=== PATIENT | female | born 1975 | race Two or more races ===

== ENCOUNTER 2016-08-05 23:42 | Observation (INO) | payer MEDICAID ==
--- NOTE | 2016-08-06 00:41 | C.PDOC ---
History Of Present Illness 40 year old patient brought to the ED by ambulance for being aggressive and under the influence in the streets. Patient admits to the ED nurse that she used "dip" today. History is limited due to patient not answering questions. Patient has been seen here previously for similar symptoms. She denies suicidal /homicidal ideations, or any physical complaints. Time Seen by Provider: 08/05/16 23:46 Chief Complaint (Nursing): Substance Abuse History Per: Patient History/Exam Limitations: other (under the influence ) Modifying Factor(s): Other Severity: Moderate Past Medical History Reviewed: Historical Data, Nursing Documentation, Vital Signs Vital Signs: Last Vital Signs Temp 98.2 F 08/06/16 02:29 Pulse 68 08/06/16 02:29 Resp 18 08/06/16 02:29 BP 162/101 H 08/06/16 02:29 Pulse Ox 99 08/06/16 02:29 - Medical History PMH: No Chronic Diseases Family History: States: Unknown Family Hx - Social History Hx Alcohol Use: Yes Hx Substance Use: Yes - Immunization History Hx Tetanus Toxoid Vaccination: No Hx Influenza Vaccination: No Hx Pneumococcal Vaccination: No Review Of Systems Except As Marked, All Systems Reviewed And Found Negative. Constitutional: Positive for: Other (under the influence) Cardiovascular: Negative for: Chest Pain Respiratory: Negative for: Cough, Shortness of Breath Gastrointestinal: Negative for: Nausea, Vomiting, Abdominal Pain, Diarrhea Psych: Negative for: Suicidal ideation Physical Exam - Physical Exam Appears: Non-toxic, No Acute Distress, Other (angry, yelling, spitting, and swinging at staff) Skin: Warm, Dry Head: Normacephalic Eye(s): bilateral: Other (dilated; rotary nystagmus) Oral Mucosa: Moist Neck: Normal, Normal ROM, Supple Cardiovascular: Rhythm Regular Respiratory: Normal Breath Sounds, No Accessory Muscle Use, No Rales, No Rhonchi , No Wheezing Extremity: Normal ROM Extremity: Bilateral: Atraumatic Neurological/Psych: Other (awake and alert, bizarre affect, agitated) ED Course And Treatment O2 Sat by Pulse Oximetry: 97 (RA) Pulse Ox Interpretation: Normal Progress Note: Patien placed in four point restraints. Accucheck ordered and reviewed. Patient placed in ED observation pending sobriety. Reevaluation Time: 02:30 Reassessment Condition: Improved (Patient reassessed, is currently calm and cooperative, AAOx3, and ambulating normally in ED. Patient is clinically sober , would like to be discharged home.) Disposition Counseled Patient/Family Regarding: Studies Performed, Diagnosis, Need For Followup - Disposition Disposition: HOME/ ROUTINE Disposition Time: 02:30 Condition: STABLE - POA Present On Arrival: None - Clinical Impression Clinical Impression: PCP (phencyclidine) abuse - Scribe Statement The provider has reviewed the documentation as recorded by the Scribe Anabel Messer Provider Attestation: All medical record entries made by the Scribe were at my direction and personally dictated by me. I have reviewed the chart and agree that the record accurately reflects my personal performance of the history, physical exam, medical decision making, and the department course for this patient. I have also personally directed, reviewed, and agree with the discharge instructions and disposition.
[2016-08-06 02:30] VITALS: BP 162/101; PULSE 68; RESP 18; TEMP 98.2
[2016-08-11 14:50] VITALS: O2SAT 97
== END 2016-08-06 02:25 | disposition home or self-care (01) ==
LOC: C.ER 23:42 → C.9OBSV 08-06 00:05
PROVIDERS: ADMIT Emergency Medicine; ATTEND Emergency Medicine
DX: F16.10 Hallucinogen abuse, uncomplicated (principal); Z78.1 Physical restraint status
CPT/HCPCS: 82948; 99285; G0378